=== PATIENT | female | born 1975 | race Caucasian/White ===

== ENCOUNTER 2017-12-17 10:12 | Emergency (ER) | payer OTHER ==
[2017-12-17] MEDS: SOD CHLORIDE 0.9% 1,000 ML IV (10:36)
[2017-12-17] MEDS: ACETAMINOPHEN 325 MG TAB PO (10:36)
[2017-12-17] MEDS: ONDANSETRON 4 MG INJ IV (10:36)
[2017-12-17 10:40] LABS: ADD MAN DIFF? NO
[2017-12-17 10:46] LABS: BASOPHILS % 0.2 % (0.0-2.0); EOSINOPHILS % 0.1 % (0.0-7.0); HEMATOCRIT 34.9 % (37.0-47.0); HEMOGLOBIN 11.4 g/dl (12.0-16.0); LYMPHOCYTES # 1.6 10^3/ul (0.8-2.9); LYMPHOCYTES % 15.9 % (15.0-51.0); MEAN CORPUSCULAR HEMOGLOBIN 26.2 pg (29.0-33.0); MEAN CORPUSCULAR HGB CONC 32.7 g/dl (32.0-37.0); MEAN CORPUSCULAR VOLUME 80.2 fl (82.0-101.0); MEAN PLATELET VOLUME 9.1 fl (7.4-10.4); MONOCYTE # 0.6 10^3/ul (0.3-0.9); MONOCYTES % 5.6 % (0.0-11.0); NEUTROPHIL # 7.7 10^3/ul (1.6-7.5); NEUTROPHILS % 77.7 % (39.0-77.0); PLATELET COUNT 393 10^3/UL (140-415); RED BLOOD COUNT 4.35 10^6/ul (4.20-5.40); RED CELL DISTRIBUTION WIDTH 18.1 % (11.5-14.5)
[2017-12-17 10:46] LABS: WHITE BLOOD COUNT 9.9 10^3/ul (4.8-10.8)
[2017-12-17 11:02] LABS: ANION GAP 13 (8-16); BLOOD UREA NITROGEN 7 mg/dl (7-20); CALCIUM 8.9 mg/dl (8.4-10.2); CARBON DIOXIDE 23 mmol/L (21-31); CHLORIDE 108 mmol/L (97-110); CREATININE 0.49 mg/dl (0.44-1.00); GLUCOSE 91 mg/dl (70-220); SODIUM 140 mmol/L (135-144)
[2017-12-17 11:36] LABS: ADD UMIC YES; UR ASCORBIC ACID 40 mg/dL (NEGATIVE); UR BACTERIA FEW /HPF (NONE SEEN); UR BILIRUBIN (Dip) NEGATIVE (NEGATIVE); UR BLOOD (Dip) NEGATIVE (NEGATIVE); UR CLARITY SLIGHTLY CLOUDY (CLEAR); UR COLOR YELLOW (YELLOW); UR GLUCOSE (Dip) NEGATIVE (NEGATIVE); UR KETONES (Dip) TRACE mg/dL (NEGATIVE); UR LEUKOCYTE ESTERASE (Dip) TRACE Leu/ul (NEGATIVE); UR NITRITE (Dip) NEGATIVE (NEGATIVE); UR RBC 0 /HPF (0-5); UR SPECIFIC GRAVITY (Dip) 1.016 (1.003-1.030); UR SQUAMOUS EPITHELIAL CELL FEW /HPF (FEW); UR TOTAL PROTEIN (Dip) NEGATIVE (NEGATIVE); UR UROBILINOGEN (Dip) NEGATIVE (NEGATIVE); UR WBC 1 /HPF (0-5)
== END 2017-12-17 12:20 | disposition home or self-care (01) ==
LOC: E/R 10:12
DX: O26.892 Other specified pregnancy related conditions, second trimester (principal); R10.30 Lower abdominal pain, unspecified; F17.210 Nicotine dependence, cigarettes, uncomplicated; O21.9 Vomiting of pregnancy, unspecified; Z3A.19 19 weeks gestation of pregnancy
CPT/HCPCS: 36415; 76805; 80048; 81001; 84702; 85025; 86900; 86901; 96374; 99285-25

== ENCOUNTER 2017-12-17 12:26 | Outpatient (CLI) | payer OTHER ==
[2017-12-17] MEDS ORDERED: BENZOCAINE 10% 7 GM GEL MM (13:18)
[2017-12-17] MEDS: BENZOCAINE 20% 0.33 OZ. GEL MM (14:09)
[2017-12-17 15:17] LABS: ALANINE AMINOTRANSFERASE 27 IU/L (13-69); ALBUMIN 3.5 g/dl (3.3-4.9); ALBUMIN/GLOBULIN RATIO 0.94; ALKALINE PHOSPHATASE 79 IU/L (42-121); ANION GAP 16 (8-16); ASPARTATE AMINO TRANSFERASE 29 IU/L (15-46); BILIRUBIN,INDIRECT 0.2 mg/dl (0-1.1); BILIRUBIN,TOTAL 0.2 mg/dl (0.2-1.3); BLOOD UREA NITROGEN 5 mg/dl (7-20); CALCIUM 8.5 mg/dl (8.4-10.2); CARBON DIOXIDE 19 mmol/L (21-31); CHLORIDE 110 mmol/L (97-110); CREATININE 0.48 mg/dl (0.44-1.00); GLUCOSE 91 mg/dl (70-220); SODIUM 141 mmol/L (135-144); TOTAL PROTEIN 7.2 g/dl (6.1-8.1)
[2017-12-17 15:22] LABS: INR 0.96; PARTIAL THROMBOPLASTIN TIME 26.4 Sec (25.0-35.0); PROTIME 12.9 Sec (11.9-14.9)
[2017-12-17 16:42] LABS: CANNABINOIDS Positive (NEGATIVE); OPIATES Positive (NEGATIVE)
[2017-12-17 16:44] LABS: AMPHETAMINE/METHAMPHETAMINE Positive (NEGATIVE); BARBITURATES Negative (NEGATIVE); BENZODIAZEPINES Negative (NEGATIVE); COCAINE Negative (NEGATIVE)
[2017-12-17 17:05] LABS: HEPATITIS B SURFACE ANTIGEN NEGATIVE (NEGATIVE)
[2017-12-17 17:16] LABS: HIV 1&2 ANTIBODY NEGATIVE (NEGATIVE)
[2017-12-18 10:01] LABS: RUBELLA ANTIBODY - IGG 3.69 index
[2017-12-18 15:24] LABS: RAPID PLASMA REAGIN NONREACTIVE (NR)
== END 2017-12-17 15:50 | disposition home or self-care (01) ==
LOC: OBT 12:26 → L-D 12:27 → OBT 15:50
DX: O26.892 Other specified pregnancy related conditions, second trimester (principal); R10.30 Lower abdominal pain, unspecified; Z3A.19 19 weeks gestation of pregnancy
CPT/HCPCS: 80053; 80307; 85610; 85730; 86592; 86703; 86762; 86850; 86900; 86901; 87340; 87591

== ENCOUNTER 2018-04-18 22:58 | Inpatient (IN) | payer MEDICAID, OTHER ==
[2018-04-19 01:18] LABS: ADD UMIC YES; AMPHETAMINE/METHAMPHETAMINE Negative (NEGATIVE); BARBITURATES Negative (NEGATIVE); BENZODIAZEPINES Negative (NEGATIVE); CANNABINOIDS Positive (NEGATIVE); COCAINE Negative (NEGATIVE); OPIATES Negative (NEGATIVE); UR ASCORBIC ACID NEGATIVE (NEGATIVE); UR BACTERIA FEW /HPF (NONE SEEN); UR BILIRUBIN (Dip) NEGATIVE (NEGATIVE); UR BLOOD (Dip) 2+ mg/dL (NEGATIVE); UR CLARITY CLOUDY (CLEAR); UR COLOR AMBER (YELLOW); UR GLUCOSE (Dip) NEGATIVE (NEGATIVE); UR KETONES (Dip) NEGATIVE (NEGATIVE); UR LEUKOCYTE ESTERASE (Dip) 3+ Leu/ul (NEGATIVE); UR MUCUS MANY /HPF (NONE SEEN); UR NITRITE (Dip) NEGATIVE (NEGATIVE); UR RBC 66 /HPF (0-5); UR SPECIFIC GRAVITY (Dip) 1.026 (1.003-1.030); UR SQUAMOUS EPITHELIAL CELL FEW /HPF (FEW); UR TOTAL PROTEIN (Dip) 1+ mg/dl (NEGATIVE); UR UROBILINOGEN (Dip) 2+ mg/dL (NEGATIVE); UR WBC 64 /HPF (0-5)
[2018-04-19] MEDS ORDERED: LACTATED RINGER'S 1,000 ML IV (03:07)
[2018-04-19] MEDS ORDERED: BUTORPHANOL 2 MG INJ IV (03:30)
[2018-04-19] MEDS ORDERED: LIDOCAINE 1% (MPF) 30 ML INJ INJ (03:30)
[2018-04-19] MEDS ORDERED: METHYLERGONOVINE 0.2 MG INJ IM ×2 (03:30→18:00)
[2018-04-19] MEDS ORDERED: MISOPROSTOL 200 MCG TAB PR ×2 (03:30→18:00)
[2018-04-19] MEDS ORDERED: IBUPROFEN 600 MG TAB PO (03:30)
[2018-04-19] MEDS ORDERED: OXYTOCIN 30 UNITS/LR 500 ML IV ×3 (03:30→18:00)
[2018-04-19] MEDS ORDERED: CARBOPROST 250 MCG INJ IM ×2 (03:30→18:00)
[2018-04-19] MEDS: LACTATED RINGER'S 1,000 ML IV* ×3 (03:32→13:32)
[2018-04-19] MEDS: AMPICILLIN 2 GM/NS (PMX) 100 ML IV (03:39)
[2018-04-19] MEDS: OXYTOCIN 30 UNITS/LR 500 ML IV ×3 (04:00→16:16)
[2018-04-19 04:15] LABS: ADD MAN DIFF? NO
[2018-04-19 04:19] LABS: WHITE BLOOD COUNT 11.2 10^3/ul (4.8-10.8)
[2018-04-19 04:19] LABS: BASOPHILS % 0.3 % (0.0-2.0); EOSINOPHILS % 0.3 % (0.0-7.0); LYMPHOCYTES # 2.9 10^3/ul (0.8-2.9); LYMPHOCYTES % 26.2 % (15.0-51.0); MEAN CORPUSCULAR HGB CONC 33.3 g/dl (32.0-37.0); MEAN PLATELET VOLUME 11.8 fl (7.4-10.4); MONOCYTE # 0.8 10^3/ul (0.3-0.9); MONOCYTES % 7.2 % (0.0-11.0); NEUTROPHIL # 7.4 10^3/ul (1.6-7.5); NEUTROPHILS % 65.7 % (39.0-77.0); PLATELET COUNT 258 10^3/UL (140-415); RED BLOOD COUNT 3.93 10^6/ul (4.20-5.40); RED CELL DISTRIBUTION WIDTH 15.1 % (11.5-14.5)
[2018-04-19 04:40] LABS: INR 0.91; PARTIAL THROMBOPLASTIN TIME 25.5 Sec (25.0-35.0); PROTIME 12.3 Sec (11.9-14.9)
[2018-04-19 05:29] LABS: HEPATITIS B SURFACE ANTIGEN NEGATIVE (NEGATIVE)
[2018-04-19] MEDS ORDERED: FENTAnyl 2MCG/ML-ROPIV 0.2% 100 ML (06:29)
[2018-04-19] MEDS ORDERED: NALOXONE (0.4 MG/ML) INJ IV (06:30)
[2018-04-19] MEDS ORDERED: DIPHENHYDRAMINE 50 MG INJ IV (06:30)
[2018-04-19 07:43] LABS: HIV 1&2 ANTIBODY NEGATIVE (NEGATIVE)
[2018-04-19] MEDS: AMPICILLIN 1 GM/NS (PMX) 50 ML IV ×2 (08:14→13:31)
[2018-04-19] MEDS ORDERED: METHADONE 10 MG TAB PO (09:00)
[2018-04-19] MEDS: ONDANSETRON 4 MG INJ IV (13:25)
[2018-04-19] MEDS: FENTAnyl 2MCG/ML-ROPIV 0.2% 100 ML BAG EPI (13:55)
[2018-04-19] MEDS ORDERED: DIPHENHYDRAMINE 25 MG CAP PO (18:00)
[2018-04-19] MEDS ORDERED: WITCH HAZEL/GLYCERIN PAD PR (18:00)
[2018-04-19] MEDS ORDERED: ZOLPIDEM 5 MG TAB PO (18:00)
[2018-04-19] MEDS ORDERED: SENNA/DOCUSATE NA (8.6MG/50MG) TAB PO (18:00)
[2018-04-19] MEDS ORDERED: ONDANSETRON 4 MG INJ IV (18:00)
[2018-04-19] MEDS ORDERED: OXYCODONE/ASPIRIN (4.88/325) TAB PO (18:00)
[2018-04-19] MEDS ORDERED: BENZOCAINE 20% 56 ML SPRAY TOP (18:00)
[2018-04-19] MEDS ORDERED: NACL 0.9% 3 ML SYG IV (18:00)
[2018-04-19] MEDS: IBUPROFEN 600 MG TAB PO ×2 (18:38→23:29)
[2018-04-19] MEDS: LANOLIN 7 GM TUBE TOP (18:41)
[2018-04-19 19:17] LABS: RAPID PLASMA REAGIN NONREACTIVE (NR)
[2018-04-19] MEDS: SENNA/DOCUSATE NA (8.6MG/50MG) TAB PO (21:28)
[2018-04-19] MEDS: MAGNESIUM HYDROXIDE 30ML CUP PO (21:28)
[2018-04-20] MEDS: IBUPROFEN 600 MG TAB PO ×3 (05:38→18:13)
[2018-04-20 09:01] LABS: ADD MAN DIFF? NO
[2018-04-20 09:12] LABS: BASOPHILS % 0.3 % (0.0-2.0); EOSINOPHILS % 0.2 % (0.0-7.0); HEMATOCRIT 29.3 % (37.0-47.0); HEMOGLOBIN 9.5 g/dl (12.0-16.0); LYMPHOCYTES # 2.6 10^3/ul (0.8-2.9); LYMPHOCYTES % 21.9 % (15.0-51.0); MEAN CORPUSCULAR HEMOGLOBIN 27.5 pg (29.0-33.0); MEAN CORPUSCULAR HGB CONC 32.4 g/dl (32.0-37.0); MEAN CORPUSCULAR VOLUME 84.9 fl (82.0-101.0); MEAN PLATELET VOLUME 11.4 fl (7.4-10.4); MONOCYTES % 8.4 % (0.0-11.0); NEUTROPHIL # 8.2 10^3/ul (1.6-7.5); NEUTROPHILS % 68.8 % (39.0-77.0); PLATELET COUNT 199 10^3/UL (140-415); RED BLOOD COUNT 3.45 10^6/ul (4.20-5.40); RED CELL DISTRIBUTION WIDTH 15.1 % (11.5-14.5)
[2018-04-20] MEDS: MAGNESIUM HYDROXIDE 30ML CUP PO ×2 (10:08→21:00)
[2018-04-20] MEDS: SENNA/DOCUSATE NA (8.6MG/50MG) TAB PO ×2 (10:08→21:05)
[2018-04-20] MEDS: METHADONE 10 MG TAB PO (10:41)
[2018-04-20] MEDS: DOCUSATE SODIUM 100 MG CAP PO (21:04)
[2018-04-20] MEDS: POLYSACCHARIDE IRON COMPLEX CAP PO (21:05)
[2018-04-21] MEDS: IBUPROFEN 600 MG TAB PO ×4 (00:15→17:27)
[2018-04-21] MEDS: DOCUSATE SODIUM 100 MG CAP PO (08:57)
[2018-04-21] MEDS: SENNA/DOCUSATE NA (8.6MG/50MG) TAB PO (08:57)
[2018-04-21] MEDS: MAGNESIUM HYDROXIDE 30ML CUP PO (08:57)
[2018-04-21] MEDS: POLYSACCHARIDE IRON COMPLEX CAP PO (08:58)
[2018-04-21] MEDS: METHADONE 10 MG TAB PO (08:59)
[2018-04-21 13:50] LABS: ADD UMIC NO; UR ASCORBIC ACID NEGATIVE (NEGATIVE); UR BILIRUBIN (Dip) NEGATIVE (NEGATIVE); UR BLOOD (Dip) NEGATIVE (NEGATIVE); UR CLARITY CLEAR (CLEAR); UR COLOR STRAW (YELLOW); UR GLUCOSE (Dip) NEGATIVE (NEGATIVE); UR KETONES (Dip) NEGATIVE (NEGATIVE); UR LEUKOCYTE ESTERASE (Dip) NEGATIVE Leu/ul (NEGATIVE); UR NITRITE (Dip) NEGATIVE (NEGATIVE); UR SPECIFIC GRAVITY (Dip) 1.005 (1.003-1.030); UR TOTAL PROTEIN (Dip) NEGATIVE (NEGATIVE); UR UROBILINOGEN (Dip) NEGATIVE (NEGATIVE)
[2018-04-21] MEDS: DIPHTH/TET/ACEL PERTUSS (ADULT) 0.5 ML VIAL IM* (17:28)
[2018-05-01 14:06] LABS: RUBELLA ANTIBODY - IGG 2.95 index; RUBELLA ANTIBODY - IGM <20.00 AU/mL
== END 2018-04-21 18:45 | disposition home or self-care (01) | DRG 775 ==
LOC: OBT 22:58 → L-D 23:00 → PP1 04-19 17:36
PROC: 10E0XZZ Delivery of Products of Conception, External Approach (ICD-10-PCS; principal; 2018-04-19)
PROC: 4A1HXCZ Monitoring of Products of Conception, Cardiac Rate, External Approach (ICD-10-PCS; 2018-04-19)
PROC: 3E0234Z Introduction of Serum, Toxoid and Vaccine into Muscle, Percutaneous Approach (ICD-10-PCS; 2018-04-21)
DX: O90.81 Anemia of the puerperium (principal); D64.9 Anemia, unspecified; Z3A.37 37 weeks gestation of pregnancy; Z37.0 Single live birth; Z79.891 Long term (current) use of opiate analgesic; Z23 Encounter for immunization
CPT/HCPCS: 62319; 76815; 80307; 81001; 81003; 85025; 85610; 85730; 86592; 86703; 86762; 86850; 86900; 86901; 87340; 90715